=== PATIENT | male | born 1990 | race African-American/Black ===

== ENCOUNTER 2021-03-17 18:45 | Emergency (ER) | payer OTHER ==
[~2021-03-17] VITALS: Ht 180.3 cm; Wt 95.3 kg
[2021-03-17] MEDS ORDERED: MEDROLPACK PO (22:15)
== END 2021-03-17 22:29 | disposition home or self-care (01) ==
LOC: ER 18:45
DX: J02.9 Acute pharyngitis, unspecified (principal); Z03.818 Encounter for observation for suspected exposure to other biological agents ruled out

== ENCOUNTER 2022-03-29 11:01 | Emergency (ER) | payer OTHER ==
[~2022-03-29] VITALS: Ht 180.3 cm; Wt 95.3 kg
[~2022-03-29 11:01] MED LIST: MEDROLPACK PO
[2022-03-29] MEDS ORDERED: CLEOCIN HCL300 MG PO (15:34)
[2022-03-29] MEDS ORDERED: KETO10TA2 PO (15:34)
[2022-03-29] MEDS ORDERED: INTESTINEX680 M1 PO (15:34)
== END 2022-03-29 16:11 ==
LOC: ER 11:01
DX: J02.9 Acute pharyngitis, unspecified (principal); Z20.828 Contact with and (suspected) exposure to other viral communicable diseases